=== PATIENT | female | born 1995 | race American Indian/Alaskan Native ===

== ENCOUNTER 2020-08-26 16:53 | Emergency (ER) | payer MEDICAID ==
--- NOTE | 2020-08-26 17:16 | Emergency Department Report ---
Blank Doc - Documentation Documentation: 25-year-old female that presents with vaginal discharge. This initial assessment/diagnostic orders/clinical plan/treatment(s) is/are subject to change based on patient's health status, clinical progression and re- assessment by fellow clinical providers in the ED. Further treatment and workup at subsequent clinical providers discretion. Patient/guardians urged not to elope from the ED as their condition may be serious if not clinically assessed and managed. Initial orders include: 1- Patient sent to [facility] for further evaluation and treatment 2- UA
[2020-08-26 17:20] VITALS: BP 122/70
[2020-08-26 18:22] LABS: Bacteria,Urine 1+ /HPF (Negative); Bilirubin,Urine NEG (Negative); Blood,Urine NEG (Negative); Color,Urine Yellow (Yellow); Mucus,Urine 2+ /HPF
[2020-08-26 18:26] LABS: HCG Qualitative,Urine Negative (Negative)
--- NOTE | 2020-08-26 21:32 | Emergency Department Report ---
ED Female HPI - General Chief complaint: Urogenital-Female Stated complaint: VAGINAL DISCHARGE Time Seen by Provider: 08/26/20 17:15 Source: patient Mode of arrival: Ambulatory Limitations: No Limitations - History of Present Illness Complaint: vaginal discharge, possible STD -: Gradual, days(s) (3) Radiation: non-radiating Severity: mild Quality: cramping Consistency: constant Improves with: none Worsens with: none Are you Now?: No Associated Symptoms: vaginal discharge - Related Data Sexually active: Yes Previous Rx's Medication Instructions Recorded Last Taken Type Azithromycin [Zithromax TAB] 1 gram PO ONCE #4 06/06/20 Unknown Rx Nitrofurantoin [place]/M-Cryst 100 mg PO Q12HR 10 Days #20 capsule 06/06/20 Unknown Rx [Macrobid CAP] Fluconazole (Nf) [Diflucan TAB] 150 mg PO ONCE #1 tablet 06/09/20 Unknown Rx Naproxen 500 mg PO Q12H PRN #30 tablet 06/09/20 Unknown Rx cephALEXin [Keflex] 500 mg PO Q6HR #40 capsule 06/09/20 Unknown Rx metroNIDAZOLE [Flagyl] 500 mg PO Q12HR #14 tab 06/09/20 Unknown Rx Fluconazole (Nf) [Diflucan TAB] 150 mg PO ONCE #1 tablet 08/26/20 Unknown Rx metroNIDAZOLE [Flagyl] 500 mg PO Q12HR #20 tab 08/26/20 Unknown Rx Allergies Allergy/AdvReac Type Severity Reaction Status Date / Time penicillin V Allergy Unknown Verified 06/06/20 14:14 ED Review of Systems ROS: Stated complaint: VAGINAL DISCHARGE Other details as noted in HPI Comment: All other systems reviewed and negative ED Past Medical Hx - Past Medical History Previous Medical History?: Yes Hx Asthma: Yes - Social History Smoking Status: Never Smoker Substance Use Type: Alcohol - Medications Home Medications: Home Medications Medication Instructions Recorded Confirmed Last Taken Type Azithromycin [Zithromax TAB] 1 gram PO ONCE #4 06/06/20 Unknown Rx Nitrofurantoin [place]/M-Cryst 100 mg PO Q12HR 10 Days #20 capsule 06/06/20 Unknown Rx [Macrobid CAP] Fluconazole (Nf) [Diflucan TAB] 150 mg PO ONCE #1 tablet 06/09/20 Unknown Rx Naproxen 500 mg PO Q12H PRN #30 tablet 06/09/20 Unknown Rx cephALEXin [Keflex] 500 mg PO Q6HR #40 capsule 06/09/20 Unknown Rx metroNIDAZOLE [Flagyl] 500 mg PO Q12HR #14 tab 06/09/20 Unknown Rx Fluconazole (Nf) [Diflucan TAB] 150 mg PO ONCE #1 tablet 08/26/20 Unknown Rx metroNIDAZOLE [Flagyl] 500 mg PO Q12HR #20 tab 08/26/20 Unknown Rx ED Physical Exam - General Limitations: No Limitations General appearance: alert, in no apparent distress - Head Head exam: Present: atraumatic, normocephalic - Eye Eye exam: Present: normal appearance, PERRL, EOMI Pupils: Present: normal accommodation - ENT ENT exam: Present: mucous membranes moist - Neck Neck exam: Present: normal inspection - Respiratory Respiratory exam: Present: normal lung sounds bilaterally. Absent: respiratory distress, wheezes - Cardiovascular Cardiovascular Exam: Present: regular rate, normal rhythm. Absent: systolic murmur, diastolic murmur, rubs, gallop - GI/Abdominal GI/Abdominal exam: Present: soft, normal bowel sounds - Speculum exam: Present: vaginal discharge, cervical discharge - Extremities Exam Extremities exam: Present: normal inspection - Back Exam Back exam: Present: normal inspection - Neurological Exam Neurological exam: Present: alert, oriented X3 - Psychiatric Psychiatric exam: Present: normal affect, normal mood - Skin Skin exam: Present: warm, dry, intact, normal color. Absent: rash ED Course Vital Signs 08/26/20 17:18 Temperature 98.5 F Pulse Rate 69 Respiratory 16 Rate Blood Pressure 122/70 O2 Sat by Pulse 99 Oximetry Critical care attestation.: If time is entered above; I have spent that time in minutes in the direct care of this critically ill patient, excluding procedure time. ED Disposition Clinical Impression: Yeast infection of the vagina, Bacterial vaginal infection Disposition: DC- TO HOME OR SELFCARE Is pt being admited?: No Does the pt Need Aspirin: No Condition: Stable Instructions: Bacterial Vaginosis (ED), Vulvovaginal Candidiasis (ED) Prescriptions: Fluconazole (Nf) [Diflucan TAB] 150 mg PO ONCE #1 tablet metroNIDAZOLE [Flagyl] 500 mg PO Q12HR #20 tab Referrals: PRIMARY CARE, [Primary Care Provider] - 3-5 Days [facility] [Provider Group] - 3-5 Days Forms: STI Treatment and Prevention
== END 2020-08-26 21:40 | disposition home or self-care (01) ==
LOC: ED 16:53
DX: N76.0 Acute vaginitis (principal); B96.89 Other specified bacterial agents as the cause of diseases classified elsewhere; J45.909 Unspecified asthma, uncomplicated; Z79.899 Other long term (current) drug therapy
CPT/HCPCS: 81001; 81025; 87086; 87210; 87591; 99283

== ENCOUNTER 2021-05-03 13:30 | Emergency (ER) | payer MEDICAID ==
[2021-05-03 14:47] LABS: Bilirubin,Urine NEG (Negative); Blood,Urine NEG (Negative); Color,Urine Yellow (Yellow); Mucus,Urine FEW /HPF; Protein,Urine <15 mg/dL mg/dL (Negative); Urobilinogen,Urine < 2.0 mg/dL (<2.0)
[2021-05-03] MEDS ORDERED: ONDANSETRON 4 MG/2 ML INJ IV ONE (14:47)
[2021-05-03] MEDS ORDERED: SODIUM CHLORIDE 0.9% 1000 ML 1,000 ML IV ONE (14:47)
--- NOTE | 2021-05-03 14:47 | Emergency Department Report ---
<MARIA NIEVES - Last Filed: 05/03/21 18:03> ED Abdominal Pain HPI - General Chief Complaint: Abdominal Pain Stated Complaint: WEAKNESS/BACK ACHE,STOMACH PAIN Time Seen by Provider: 05/03/21 14:35 Source: patient Mode of arrival: Ambulatory Limitations: No Limitations - History of Present Illness Initial Comments: 26-year-old female presents to the ER today with complaints of low abdominal pain and lower back pain. Patient states that her symptoms started this morning. She reports associated nausea and she states that she vomited twice today. She reports urinary frequency but no dysuria. Patient admits that she has been binge drinking the past 3 days and celebration of her birthday and her friend's birthday. She states that she had multiple drinks last night and she feels dehydrated and weak. She denies any diarrhea or constipation. She denies any hematemesis. She denies any fever or chills. Her last menstrual cycle was April 13, 2020. MD Complaint: abdominal pain, other (Nausea and vomiting) -: Sudden - Related Data Previous Rx's Medication Instructions Recorded Last Taken Type Ferrous Sulfate [Ferrous Sulfate 324 mg PO BID #60 tablet. 05/03/21 Unknown Rx 324 MG] Ketorolac [Toradol] 10 mg PO Q6H PRN #20 tablet 05/03/21 Unknown Rx Ondansetron [Zofran Odt] 4 mg PO Q8HR PRN #15 tab.rapdis 05/03/21 Unknown Rx Allergies Allergy/AdvReac Type Severity Reaction Status Date / Time penicillin V Allergy Unknown Verified 06/06/20 14:14 ED Review of Systems Comment: All other systems reviewed and negative Constitutional: denies: chills, fever Eyes: denies: eye pain, eye discharge, vision change ENT: denies: ear pain, throat pain Respiratory: denies: cough, shortness of breath, SOB with exertion, SOB at rest, wheezing Cardiovascular: denies: chest pain, palpitations, dyspnea on exertion, edema, syncope, paroxysmal nocturnal dyspnea Endocrine: no symptoms reported Gastrointestinal: abdominal pain, nausea, vomiting. denies: diarrhea, constipation, hematemesis, melena, hematochezia Genitourinary: frequency. denies: urgency, dysuria, hematuria, discharge, abnormal menses, dyspareunia Musculoskeletal: back pain Skin: denies: rash, lesions, change in color, change in hair/nails, pruritus Neurological: denies: headache, weakness, paresthesias Psychiatric: denies: anxiety, depression, auditory hallucinations, visual hallucinations, homicidal thoughts, suicidal thoughts Hematological/Lymphatic: denies: easy bleeding, easy bruising, swollen glands ED Past Medical Hx - Past Medical History Previous Medical History?: Yes Hx Asthma: Yes - Surgical History Past Surgical History?: No - Social History Smoking Status: Never Smoker Substance Use Type: Alcohol - Medications Home Medications: Home Medications Medication Instructions Recorded Confirmed Last Taken Type Ferrous Sulfate [Ferrous Sulfate 324 mg PO BID #60 tablet. 05/03/21 Unknown Rx 324 MG] Ketorolac [Toradol] 10 mg PO Q6H PRN #20 tablet 05/03/21 Unknown Rx Ondansetron [Zofran Odt] 4 mg PO Q8HR PRN #15 tab.rapdis 05/03/21 Unknown Rx ED Physical Exam - General Limitations: No Limitations General appearance: alert, in no apparent distress, other (EtOH odor on breath) - Head Head exam: Present: atraumatic, normocephalic, normal inspection - Eye Eye exam: Present: normal appearance, PERRL, EOMI Pupils: Present: normal accommodation - ENT ENT exam: Present: normal exam, mucous membranes moist - Neck Neck exam: Present: normal inspection, full ROM. Absent: meningismus - Respiratory Respiratory exam: Present: normal lung sounds bilaterally. Absent: respiratory distress, wheezes, rales, rhonchi - Cardiovascular Cardiovascular Exam: Present: regular rate, normal rhythm, normal heart sounds - GI/Abdominal GI/Abdominal exam: Present: soft, tenderness (Mild suprapubic tenderness without guarding or rebound). Absent: distended, guarding, rebound, rigid - Neurological Exam Neurological exam: Present: alert, oriented X3, CN II-XII intact, normal gait - Psychiatric Psychiatric exam: Present: normal affect, normal mood - Skin Skin exam: Present: intact ED Medical Decision Making - Lab Data Result diagrams: 05/03/21 14:55 05/03/21 14:55 - Medical Decision Making Patient reports feeling better after IV fluids and Zofran. She is currently on her phone talking. She is not in any acute pain or respiratory distress. No vomiting during stay. She has a nonsurgical abdominal exam. She is well- appearing and nontoxic. Labs reviewed, and work-up today shows nothing acute. Her vital signs are stable. Her history, exam, diagnostic testing and current condition do not suggest acute appendicitis, bowel obstruction, acute cholecystitis, bowel perforation, major GI bleed, severe diverticulitis, kidney stone, volvulus, sepsis or other significant pathology to warrant further testing, continued ED treatment, admission or surgical evaluation at this point. Discussed labs, suspected diagnosis and treatment plan with patient. Patient expressed understanding of instructions and agree with plan. Patient stable at time of discharge. ED Disposition Clinical Impression: Nausea & vomiting, Abdominal pain, Alcohol abuse, Anemia Disposition: DC- TO HOME OR SELFCARE Is pt being admited?: No Does the pt Need Aspirin: No Condition: Stable Instructions: Abdominal Pain, Adult, Nausea and Vomiting, Adult, Alcohol Abuse and Nutrition, Abdominal Pain (ED) Additional Instructions: Recommend that you drink lots of fluids including Pedialyte, Gatorade, electrolyte water and also recommend that she try to decrease your alcohol intake for the next few days. Take the Toradol and the Zofran as needed to help with pain or any continued nausea or vomiting. Follow-up closely with your primary care doctor. Return to the ER if your symptoms changes or worsens in any way. Prescriptions: Ferrous Sulfate [Ferrous Sulfate 324 MG] 324 mg PO BID #60 tablet. Ketorolac [Toradol] 10 mg PO Q6H PRN #20 tablet PRN Reason: Pain Ondansetron [Zofran Odt] 4 mg PO Q8HR PRN #15 tab.rapdis PRN Reason: Nausea And Vomiting Referrals: SEBASTIEN BACH MD [Staff Physician] - 3-5 Days Forms: Work/School Release Form(ED) Time of Disposition: 17:11 <MANPREET TROTTER - Last Filed: 05/04/21 08:44> ED Review of Systems ROS: Stated complaint: WEAKNESS/BACK ACHE,STOMACH PAIN Other details as noted in HPI ED Course Vital Signs 05/03/21 05/03/21 14:02 17:35 Temperature 98.6 F Pulse Rate 86 71 Respiratory 20 16 Rate Blood Pressure 118/74 Blood Pressure 109/60 [Left] O2 Sat by Pulse 100 100 Oximetry ED Medical Decision Making - Lab Data Result diagrams: 05/03/21 14:55 05/03/21 14:55 - Medical Decision Making I personally spoke to the patient over the phone on the morning of 05/04/2021 and she stated that all her symptoms have remained resolved. I underscored the importance of following up with a doctor, either primary care or OBGYN for repeat labs to recheck hemoglobin over the next few days. Patient expressed understanding and says she will do so. Critical care attestation.: If time is entered above; I have spent that time in minutes in the direct care of this critically ill patient, excluding procedure time.
[2021-05-03 14:50] LABS: HCG Qualitative,Urine Negative (Negative)
[2021-05-03 15:32] LABS: Hemoglobin 7.3 gm/dl (10.1-14.3); Mean Corpuscular HGB Conc 29 % (30-34); Platelet Count 310 K/mm3 (140-440); Red Blood Count 4.22 M/mm3 (3.65-5.03)
[2021-05-03 15:33] LABS: Mean Corpuscular Volume 59 fl (79-97); Red Cell Distribution Width 21.1 % (13.2-15.2)
[2021-05-03 15:44] LABS: Alanine Aminotransferase 7 units/L (7-56); Albumin 4.1 g/dL (3.9-5); BUN/Creatinine Ratio 19; Blood Urea Nitrogen 17 mg/dL (7-17); Calcium 8.9 mg/dL (8.4-10.2); Hemolysis Index 1
[2021-05-03 15:46] LABS: Bilirubin,Direct < 0.2 mg/dL (0-0.2)
[2021-05-03 17:36] VITALS: BP 109/60
[2021-05-03 19:49] LABS: Anisocytosis 1+; Total Cells Counted 100
[2021-05-03 19:50] LABS: Platelet Estimate Consistent w Auto
== END 2021-05-03 17:39 | disposition home or self-care (01) ==
LOC: ED 13:30
DX: D64.9 Anemia, unspecified (principal); R11.2 Nausea with vomiting, unspecified; M54.5 Low back pain; R10.30 Lower abdominal pain, unspecified; F10.10 Alcohol abuse, uncomplicated; J45.909 Unspecified asthma, uncomplicated; Z79.899 Other long term (current) drug therapy; Z88.0 Allergy status to penicillin; Y90.9 Presence of alcohol in blood, level not specified
CPT/HCPCS: 36415; 80048; 80076; 81001; 81025; 83690; 85007; 85025; 96361; 96374; 99283; J2405; J7030